=== PATIENT | male | born 1995 | race Caucasian/White ===

== ENCOUNTER 2016-09-23 19:37 | Emergency (ER) | payer MEDICAID, OTHER ==
[~2016-09-23] VITALS: Ht 167.6 cm; Wt 108.9 kg
[~2016-09-23 19:37] MED LIST: DONNATAL TAB1 TAB ORAL; IBUPROFEN600 MG ORAL; IMODIUM2 MG ORAL; ZOFRAN4 MG ORAL
[2016-09-23 19:58] VITALS: BP 130/73
[2016-09-23 20:19] LABS: BASOPHILS % (AUTO) 1.4 % (0.0-2.0); EOSINOPHILS % (AUTO) 0.1 % (0.0-3.0); LYMPHOCYTES % (AUTO) 19.4 % (20.0-45.0); MEAN CORPUSCULAR HEMOGLOBIN 27.7 PG (27.0-31.0); MEAN CORPUSCULAR HGB CONC 31.6 G/DL (32.0-36.0); MEAN CORPUSCULAR VOLUME 88 FL (80-99); MONOCYTES % (AUTO) 4.9 % (1.0-10.0); NEUTROPHILS % (AUTO) 74.2 % (45.0-75.0); PLATELET COUNT 250 K/UL (150-450); RED BLOOD COUNT 5.33 M/UL (4.70-6.10); RED CELL DISTRIBUTION WIDTH 12.5 % (11.6-14.8)
[2016-09-23 20:39] LABS: ALANINE AMINOTRANSFERASE 10 U/L (3-41); ALBUMIN/GLOBULIN RATIO 1.6 (1.0-2.7); ANION GAP 13 (5-15); ASPARTATE AMINO TRANSFERASE 24 U/L (5-40); CALCIUM 8.6 mg/dL (8.6-10.2); CARBON DIOXIDE 27 mEQ/L (20-30); CHLORIDE 101 mEQ/L (98-107); CREATININE 0.9 mg/dL (0.7-1.2); GLOMERULAR FILTRATION RATE > 60 mL/min (>60); HEMOLYSIS 7; POTASSIUM 3.8 mEQ/L (3.4-4.9); SODIUM 141 mEQ/L (135-145); TOTAL PROTEIN 6.2 g/dL (6.6-8.7)
[2016-09-23 20:40] LABS: TROPONIN I < 0.30 ng/mL (<=0.30)
[2016-09-23 20:50] LABS: CKMB < 1.5 ng/mL (< 6.7)
[2016-09-23 21:17] VITALS: BP 153/93
--- NOTE | 2016-09-23 22:09 | Emergency Room Report ---
History of Present Illness General Chief Complaint: Chest Pain Source: Patient Present Illness HPI 21-year-old male presents to ED for evaluation. Patient is in police custody. Patient states that shortly after being arrested he develop chest pain. Pain was midsternal, sharp, 7/10, nonradiating. No aggravating relieving factors. Denies shortness of breath. Denies smoking or drug use. Denies any other associated symptoms Allergies: Coded Allergies: No Known Allergies (Unverified , 03/03/15) Patient History Past Medical History: HTN Past Surgical History: none Pertinent Family History: none Social History: Denies: alcohol use, drug use, smoking Immunizations: UTD Reviewed Nursing Documentation: PMH: Agreed, PSxH: Agreed Nursing Documentation-PMH Hx Hypertension: Yes Hx Gastrointestinal Problems: Yes - unk diagnosis Review of Systems All Other Systems: negative except mentioned in HPI Physical Exam Vital Signs Date Time Temp Pulse Resp B/P Pulse Ox O2 Delivery O2 Flow Rate FiO2 09/23/16 19:35 97.3 80 16 153/88 99 Room Air Sp02 EP Interpretation: reviewed, normal General Appearance: no apparent distress, alert, GCS 15, non-toxic Head: normocephalic, atraumatic Eyes: bilateral eye PERRL, bilateral eye normal inspection ENT: hearing grossly normal, normal pharynx, no angioedema, normal voice Neck: full range of motion, supple/symm/no masses Respiratory: chest non-tender, lungs clear, normal breath sounds, speaking full sentences Cardiovascular #1: regular rate, rhythm, no edema Cardiovascular #2: 2+ carotid (R), 2+ carotid (L), 2+ radial (R), 2+ radial (L) , 2+ dorsalis pedis (R), 2+ dorsalis pedis (L) Gastrointestinal: normal bowel sounds, non tender, soft, non-distended, no guarding, no rebound Rectal: deferred Genitourinary: normal inspection, no CVA tenderness Musculoskeletal: back normal, gait/station normal, normal range of motion, non- tender Neurologic: alert, oriented x3, responsive, motor strength/tone normal, sensory intact, speech normal Psychiatric: judgement/insight normal, memory normal, mood/affect normal, no suicidal/homicidal ideation Reflexes: 3+ bicep (R), 3+ bicep (L), 3+ tricep (R), 3+ tricep (L), 3+ knee (R) , 3+ knee (L) Skin: normal color, no rash, warm/dry, well hydrated Lymphatic: no adenopathy Medical Decision Making Diagnostic Impression: Primary Impression: Chest pain Qualified Codes: R07.9 - Chest pain, unspecified Additional Impression: Medical clearance for incarceration ER Course Hospital Course 21-year-old M presents ED complaining of chest pain. In police custody Differential diagnoses include: Rib fracture, ME/unstable angina, contusion, muscle strain Clinical course Patient placed on stretcher. After initial history and physical I ordered labs , EKG, chest x-ray. labs reviewed- all electrolytes normal, troponins negative, no leukocytosis, hemoglobin/hematocrit stable Chest x-ray-no cardiomegaly, no rib fracture, no pneumothorax, no acute process per HEART score, patient is at low risk for acute event given lack of risk factors. Patient can be safely discharged to police custody I. I feel this is a highly complex case requiring extensive working including EKG/Rhythm strip, Xray/CT/US, Blood/urine lab work, repeat exams while in ED, and administration of strong opiates/narcotics for pain control, admission to hospital or close patient follow up. Diagnosis - chest pain , medical clearance for incarceration Stable and discharged to police custody. Instructed to followup with PMD. Return to ED if symptoms recur or worsen Labs Test 09/23/16 20:03 White Blood Count 10.0 K/UL (4.8-10.8) Red Blood Count 5.33 M/UL (4.70-6.10) Hemoglobin 14.8 G/DL (14.2-18.0) Hematocrit 46.6 % (42.0-52.0) Mean Corpuscular Volume 88 FL (80-99) Mean Corpuscular Hemoglobin 27.7 PG (27.0-31.0) Mean Corpuscular Hemoglobin Concent 31.6 G/DL (32.0-36.0) Red Cell Distribution Width 12.5 % (11.6-14.8) Platelet Count 250 K/UL (150-450) Mean Platelet Volume 5.0 FL (6.5-10.1) Neutrophils (%) (Auto) 74.2 % (45.0-75.0) Lymphocytes (%) (Auto) 19.4 % (20.0-45.0) Monocytes (%) (Auto) 4.9 % (1.0-10.0) Eosinophils (%) (Auto) 0.1 % (0.0-3.0) Basophils (%) (Auto) 1.4 % (0.0-2.0) Sodium Level 141 mEQ/L (135-145) Potassium Level 3.8 mEQ/L (3.4-4.9) Chloride Level 101 mEQ/L (98-107) Carbon Dioxide Level 27 mEQ/L (20-30) Anion Gap 13 (5-15) Blood Urea Nitrogen 11 mg/dL (7-23) Creatinine 0.9 mg/dL (0.7-1.2) Estimat Glomerular Filtration Rate > 60 mL/min (>60) Glucose Level 100 mg/dL (74-106) Calcium Level 8.6 mg/dL (8.6-10.2) Total Bilirubin < 0.2 mg/dL (0.0-1.2) Aspartate Amino Transf (AST/SGOT) 24 U/L (5-40) Alanine Aminotransferase (ALT/SGPT) 10 U/L (3-41) Alkaline Phosphatase 33 U/L (40-129) Total Creatine Kinase 307 U/L (38-174) Creatine Kinase MB < 1.5 ng/mL (< 6.7) Creatine Kinase MB Relative Index Troponin I < 0.30 ng/mL (<=0.30) Pro-B-Type Natriuretic Peptide 28 pg/mL (0-125) Total Protein 6.2 g/dL (6.6-8.7) Albumin 3.9 g/dL (3.5-5.2) Globulin 2.3 g/dL Albumin/Globulin Ratio 1.6 (1.0-2.7) EKG Diagnostic Results Rate: normal Rhythm: NSR ST Segments: no acute changes ASA given to the pt in ED: No Rhythm Strip Diag. Results EP Interpretation: yes Rhythm: NSR, no PVC's, no ectopy Chest X-Ray Diagnostic Results EP Interpretation: Yes Findings: no consolidation, no effusion, no pneumothorax, no acute cardiopulmonary disease Number of Views: 1 Last Vital Signs Date Time Temp Pulse Resp B/P Pulse Ox O2 Delivery O2 Flow Rate FiO2 09/23/16 21:17 103 17 153/93 99 Room Air 09/23/16 19:58 97.3 Status: improved Disposition: D/C TO LAW ENFORCEMENT IN CUST Condition: Stable Departure Forms: Group Home Clearance Patient Instructions: Nonspecific Chest Pain NEREIDA MARTINEZ M.D. Sep 23, 2016 22:09
--- NOTE | 2016-09-27 10:33 | Diagnostic Imaging Report ---
Indication: Chest pain Technique: Single portable AP view of the chest. Findings: Comparison: None. Projection limits evaluation. The bones and extra pulmonary soft tissues, cardiomediastinal silhouette, pulmonary vasculature and parenchyma, and pleural surfaces are unremarkable. IMPRESSION: Negative portable AP chest, limited as described. Upright PA and lateral chest radiographs with better inspiratory effort and optimal technique recommended for more complete evaluation..
--- NOTE | 2016-09-27 15:03 | Cardiology Report ---
APPROVED REPORT EKG Measurement Heart [id number] Sinus tachycardia Otherwise normal ECG
== END 2016-09-23 21:21 ==
LOC: EDBD 19:37 → EMR 20:00
DX: R07.89 Other chest pain (principal); I10 Essential (primary) hypertension
CPT/HCPCS: 36415; 71010; 80053; 82550; 82553; 83880; 84484; 85025; 93005; 99283

== ENCOUNTER 2018-02-08 05:43 | Emergency (ER) | payer MEDICAID, OTHER ==
[~2018-02-08] VITALS: Ht 167.6 cm; Wt 117.0 kg
[2018-02-08 05:50] VITALS: BP 119/51
[2018-02-08] MEDS ORDERED: HYDROCHLOROTHIA25 MG ORAL (05:56)
--- NOTE | 2018-02-08 05:56 | Emergency Room Report ---
History of Present Illness General Chief Complaint: Chest Pain Source: Patient Present Illness HPI This is a 22-year-old male with a history of high blood pressure but not on medication yet. He presents with chief complaint of chest pain is been ongoing for 48 hours. He said his baby pain going to the left chest. Sharp in nature. Pain is 5 out of 10. No fever chills but no nausea no vomiting. No radiation. Also wanted prescribed refill on Ambien. Allergies: Coded Allergies: No Known Allergies (Unverified , 03/03/15) Patient History Past Medical History: see triage record, old chart reviewed Past Surgical History: none Pertinent Family History: none Social History: Denies: smoking Immunizations: other Reviewed Nursing Documentation: PMH: Agreed; PSxH: Agreed Nursing Documentation-PMH Hx Hypertension: Yes Hx Asthma: Yes Hx Gastrointestinal Problems: Yes - unk diagnosis Review of Systems Eye: Denies: eye pain, blurred vision ENT: Denies: ear pain, nose congestion, throat swelling Respiratory: Denies: cough, shortness of breath Cardiovascular: Reports: chest pain; Denies: palpitations Gastrointestinal: Denies: abdominal pain, diarrhea, nausea, vomiting Musculoskeletal: Denies: back pain, joint pain Skin: Denies: rash Neurological: Denies: headache, numbness Endocrine: Denies: increased thirst, increased urine Hematologic/Lymphatic: Denies: easy bruising All Other Systems: negative except mentioned in HPI Physical Exam Vital Signs Date Time Temp Pulse Resp B/P (MAP) Pulse Ox O2 Delivery O2 Flow Rate FiO2 02/08/18 05:44 98.7 76 18 156/86 99 Room Air 98.8 vitals with high blood pressure Sp02 EP Interpretation: reviewed, normal General Appearance: well appearing, no apparent distress, alert, obese Head: normocephalic, atraumatic Eyes: bilateral eye PERRL, bilateral eye EOMI ENT: hearing grossly normal, normal pharynx Neck: full range of motion, supple, no meningismus Respiratory: chest non-tender, lungs clear, normal breath sounds Cardiovascular #1: regular rate, rhythm, no murmur Gastrointestinal: normal bowel sounds, non tender, no mass, no organomegaly, no bruit, non-distended Musculoskeletal: back normal, gait/station normal, normal range of motion Psychiatric: mood/affect normal Skin: warm/dry Medical Decision Making Diagnostic Impression: Primary Impression: Atypical chest pain Additional Impressions: Hypertension Qualified Codes: I10 - Essential (primary) hypertension Morbid obesity with BMI of 40.0-44.9, adult ER Course Patient with atypical chest pain. No evidence of ACS, PE, dissection. He's not hypoxic or tachypneic. Not tachycardic. We'll go ahead and put him on high blood pressure medication. He has follow-up in a week. I told him I would not refill controlled substance like Ambien. He can see his DrHoracio for it. EKG Diagnostic Results Rate: normal Rhythm: NSR ST Segments: no acute changes ASA given to the pt in ED: No Rhythm Strip Diag. Results Rhythm Strip Time: 05:55 EP Interpretation: yes Rate: 80 Rhythm: NSR, no PVC's, no ectopy Last Vital Signs Date Time Temp Pulse Resp B/P (MAP) Pulse Ox O2 Delivery O2 Flow Rate FiO2 02/08/18 05:44 98.7 76 18 156/86 99 Room Air 98.8 Status: improved Disposition: HOME, SELF-CARE Condition: Stable Scripts Hydrochlorothiazide* (HYDROCHLOROTHIAZIDE*) 25 Mg Tablet 25 MG ORAL DAILY, #30 TAB Prov: PHILOMENA MARCELO M.D. 02/08/18 Patient Instructions: Nonspecific Chest Pain Additional Instructions: Follow-up with your doctor in a week. Return if symptom worsen. PHILOMENA MARCELO M.D. February 08, 2018 05:56
[2018-02-08 06:10] VITALS: BP 120/58
--- NOTE | 2018-02-09 17:19 | Cardiology Report ---
APPROVED REPORT EKG Measurement Heart [id number] Normal sinus rhythm Normal ECG
== END 2018-02-08 06:10 | disposition home or self-care (01) ==
LOC: EDBD 05:43 → EDUNIT# 05:43 → EMR 05:58
DX: R07.89 Other chest pain (principal); I10 Essential (primary) hypertension; E66.01 Morbid (severe) obesity due to excess calories; Z68.41 Body mass index [BMI] 40.0-44.9, adult; J45.909 Unspecified asthma, uncomplicated
CPT/HCPCS: 93005; 99283

== ENCOUNTER 2019-01-30 02:53 | Emergency (ER) | payer MEDICAID ==
[~2019-01-30] VITALS: Ht 170.2 cm; Wt 108.9 kg
[~2019-01-30 02:53] MED LIST changes: +HYDROCHLOROTHIA25 MG ORAL
[2019-01-30 03:10] VITALS: BP 120/56
--- NOTE | 2019-01-30 03:10 | NUR ---
ED Nurse Note: Pt arrived ambulatory into ED for complaint of chest pain that occurred tonight after moving some boxes down the stairs. Pt has a hx of anxiety and htn. Pt states pain is a 7/10, feeling like pressure and crushing substernally. Pain is non-radiating. VSS. Pt showing no signs of acute distress.
--- NOTE | 2019-01-30 03:37 | Emergency Room Report ---
History of Present Illness General Chief Complaint: Chest Pain Source: Patient Present Illness HPI Patient was carrying a box downstairs. He misstepped and fell 7 or 8 steps and tumbled. He thinks he might have lost consciousness but remembers falling. He was laying there for 5 minutes with severe right ankle pain. He was also complaining about chest pain at that time. Denies any headache or neck pain at this time. There is swelling in his ankle also. He denies any numbness. There was no vomiting or hematuria. He has urinated since that time. Took no medication before coming in. Pain rated 7/10 in ankle, aching, non-radiating. Chest pain is much less. He denies hitting his chest when falling. The patient is had chest pain like this in the past. His doctors have considered treating him for medication for anxiety. No fevers, chills, palpitations, nausea, diarrhea, dysuria, abdominal pain, shortness of breath, depression, visual changes, headache. Allergies: Coded Allergies: No Known Allergies (Unverified , 03/03/15) Patient History Past Medical History: see triage record Social History: Denies: smoking, alcohol use, drug use Social History Narrative from home Reviewed Nursing Documentation: PMH: Agreed; PSxH: Agreed Nursing Documentation-PMH Hx Hypertension: Yes Hx Asthma: Yes Hx Gastrointestinal Problems: Yes - unk diagnosis Review of Systems All Other Systems: negative except mentioned in HPI Physical Exam Vital Signs Date Time Temp Pulse Resp B/P (MAP) Pulse Ox O2 Delivery O2 Flow Rate FiO2 01/30/19 03:07 98.8 87 20 98 Room Air Sp02 EP Interpretation: reviewed, normal General Appearance: no apparent distress, alert, GCS 15, obese Head: normocephalic Eyes: bilateral eye normal inspection, bilateral eye PERRL, bilateral eye EOMI ENT: moist mucus membranes Neck: supple Respiratory: lungs clear, normal breath sounds, other - Minimal chest wall tenderness Cardiovascular #1: regular rate, rhythm Cardiovascular #2: 2+ radial (R) Gastrointestinal: normal inspection, normal bowel sounds, non tender, no mass, non-distended, overweight Genitourinary: no CVA tenderness Musculoskeletal: back normal, normal range of motion, swelling, tender - Right ankle with lateral malleolus point tenderness no fifth metatarsal tenderness Neurologic: alert, oriented x3, motor strength/tone normal, DTRs symmetric, sensory intact - distal exam normal, cerebellar normal, normal gait, speech normal, grossly normal Psychiatric: anxious Skin: normal inspection, warm/dry Medical Decision Making Diagnostic Impression: Primary Impression: Ankle sprain Qualified Codes: S93.411A - Sprain of calcaneofibular ligament of right ankle , initial encounter Additional Impressions: Chest pain Qualified Codes: R07.9 - Chest pain, unspecified Fall Qualified Codes: W19.XXXA - Unspecified fall, initial encounter ER Course Patient presents post fall. Is complaining about chest pain and also ankle pain. EKG chest x-ray and right ankle films are indicated. Patient will receive a shot of Toradol. Based on his vital signs pulmonary embolus is excluded. EKG sinus rhythm with sinus arrhythmia normal EKG. CXR no abnormalities. Ankle no fx. Air splint applied by tech with good position. Neurovasc checked by me and normal. Improved with treatment. Patient stable for outpatient observation and treatment. EKG Diagnostic Results Rate: normal Rhythm: NSR ST Segments: no acute changes Rhythm Strip Diag. Results EP Interpretation: yes Rhythm: NSR, no PVC's, no ectopy Chest X-Ray Diagnostic Results Chest X-Ray Diagnostic Results : Chest X-Ray Ordered: Yes # of Views/Limited/Complete: 1 View Indication: Chest Pain EP Interpretation: Yes Interpretation: no consolidation, no effusion, no pneumothorax Impression: No acute disease Electronically Signed by: Electronically signed by Tristan Tolliver MD Other X-Ray Diagnostic Results Other X-Ray Diagnostic Results : X-Ray ordered: R ankle # of Views/Limited Vs Complete: 3 View Indication: Other EP Interpretation: Yes Interpretation: no dislocation, no fractures, other - STS Impression: Other Electronically Signed by: Electronically signed by Tristan Tolliver MD Last Vital Signs Date Time Temp Pulse Resp B/P (MAP) Pulse Ox O2 Delivery O2 Flow Rate FiO2 01/30/19 06:18 98.0 78 23 132/56 100 Room Air Status: improved Disposition: HOME, SELF-CARE Condition: Improved Scripts Tramadol Hcl* (ULTRAM*) 50 Mg Tablet 50 MG ORAL Q6H PRN for For Pain, #6 TAB 0 Refills Prov: Tristan Tolliver MD 01/30/19 Acetaminophen (Tylenol) 325 Mg Tablet 650 MG ORAL Q6H PRN for Prn Pain/Headache/Temp > 101, #20 TAB 0 Refills Prov: Tristan Tolliver MD 01/30/19 Ibuprofen* (MOTRIN*) 600 Mg Tablet 600 MG ORAL Q6H PRN for For Pain, #16 TAB Prov: Tristan Tolliver MD 01/30/19 Referrals: NON PHYSICIAN (PCP) Tristan Tolliver MD January 30, 2019 03:37
[2019-01-30] MEDS ORDERED: Ketorolac 30mg Inj IM ONE (03:45)
[2019-01-30] MEDS ORDERED: TRAMADOL HCL50 MG ORAL ×2 (05:48→05:49)
[2019-01-30] MEDS ORDERED: IBUPROFEN600 MG ORAL (05:48)
[2019-01-30] MEDS ORDERED: TYLENOL325 MG ORAL (05:48)
[2019-01-30 06:18] VITALS: BP 132/56
--- NOTE | 2019-01-30 06:18 | NUR ---
ED Nurse Note: Pt cleared by . Pt A/Ox4, showing no signs of acute distress, VSS. Discharge paperwork and prescriptions provide. Pt verbalized understanding of all instructions. Pt provided with taxi voucher and is able to ambulate steadily with crutches. All belongings taken with patient. ID band removed.
--- NOTE | 2019-01-30 11:41 | Diagnostic Imaging Report ---
Indication: Dyspnea Comparison: 09/23/2016 A single view chest radiograph was obtained. Findings: Cardiomediastinal appearance is within normal limits for age. The lungs are clear. Pulmonary vascularity is appropriate. The diaphragmatic contour is smooth and costophrenic angles are sharp. No pleural effusions are identified. The bones are unremarkable. Impression: No acute findings
--- NOTE | 2019-01-30 11:42 | Diagnostic Imaging Report ---
Indication: Pain right ankle ankle pain/trauma Comparison: None Findings: 3 views of the right ankle obtained. No acute fracture, malalignment, periostitis, or osteochondral defects are identified. Soft tissue swelling noted. IMPRESSION: Soft tissue swelling nonspecific in nature
== END 2019-01-30 06:18 | disposition home or self-care (01) ==
LOC: EMR 03:30
DX: S93.401A Sprain of unspecified ligament of right ankle, initial encounter (principal); R07.9 Chest pain, unspecified; W10.9XXA Fall (on) (from) unspecified stairs and steps, initial encounter; Y92.9 Unspecified place or not applicable; I10 Essential (primary) hypertension
CPT/HCPCS: 71045; 73610; 96372; 99284; J1885

== ENCOUNTER 2019-02-08 17:28 | Emergency (ER) | payer MEDICAID ==
[~2019-02-08] VITALS: Ht 177.8 cm; Wt 104.3 kg
[~2019-02-08 17:28] MED LIST changes: +TRAMADOL HCL50 MG ORAL; +TYLENOL325 MG ORAL
[2019-02-08] MEDS ORDERED: NKM (17:33)
--- NOTE | 2019-02-08 18:08 | Emergency Room Report ---
History of Present Illness General Chief Complaint: Earache Source: Patient Present Illness HPI 23-year-old male presents to the emergency department complaining of 10 out of 10 in severity pain, tenderness, swelling and erythema to the right earlobe progressive 2-3 days. She states that he has had a chronic keloid scar for the past year in that area he states however his infant son keeps tugging on that year which is been aggravating it. Patient reports he has a new onset of a small open wound that had some mild crusting to it this a.m. Denies fevers or chills he denies swollen tender lymph nodes he denies changes to his hearing , discharge from the ear or ear trauma other than being pulled on by his child. He has not been taking any anti-inflammatories or any medications for his symptoms. Allergies: Coded Allergies: No Known Allergies (Unverified , 03/03/15) Patient History Past Medical History: see triage record Past Surgical History: none Pertinent Family History: none Reviewed Nursing Documentation: PMH: Agreed; PSxH: Agreed Nursing Documentation-PMH Hx Hypertension: Yes Hx Asthma: Yes Hx Gastrointestinal Problems: Yes - unk diagnosis Review of Systems All Other Systems: negative except mentioned in HPI Physical Exam Vital Signs Date Time Temp Pulse Resp B/P (MAP) Pulse Ox O2 Delivery O2 Flow Rate FiO2 02/08/19 17:31 97.5 80 18 117/72 (87) 96 Room Air Sp02 EP Interpretation: reviewed, normal General Appearance: no apparent distress, alert, GCS 15, non-toxic Head: normocephalic, atraumatic Eyes: bilateral eye normal inspection, bilateral eye PERRL ENT: hearing grossly normal, normal voice, other - pain, tenderness, swelling and erythema to the right earlobe-- Keloid scar that is 2cm in diameter with warmth, and small 0.2cm open laceration that is crusted and scabbed. no Preauricular LAD. Neck: full range of motion Respiratory: chest non-tender, lungs clear, normal breath sounds, speaking full sentences Cardiovascular #1: regular rate, rhythm, no edema Musculoskeletal: back normal, gait/station normal, normal range of motion, non- tender Neurologic: alert, oriented x3, responsive, motor strength/tone normal, sensory intact, speech normal, grossly normal Psychiatric: judgement/insight normal Skin: normal color, no rash, warm/dry, well hydrated, other - pain, tenderness , swelling and erythema to the right earlobe-- Keloid scar that is 2cm in diameter with warmth, and small 0.2cm open laceration that is crusted and scabbed Lymphatic: no adenopathy Medical Decision Making PA Attestation Dr. Tolliver is my supervising Physician whom patient management has been discussed with. Diagnostic Impression: Primary Impression: Cellulitis Qualified Codes: L03.90 - Cellulitis, unspecified ER Course 23-year-old male presents to the emergency department complaining of 10 out of 10 in severity pain, tenderness, swelling and erythema to the right earlobe progressive 2-3 days. She states that he has had a chronic keloid scar for the past year in that area he states however his son keeps tugging on that year which is been aggravating it. Patient reports he has a new onset of a small open wound that had some mild crusting to it this a.m. Denies fevers or chills he denies swollen tender lymph nodes he denies changes to his hearing , discharge from the ear or ear trauma other than being pulled on by his child. He has not been taking any anti-inflammatories or any medications for his symptoms. Ddx considered but are not limited to cellulitis, abscess, ST FB, otitis externa just to name a few. Vital signs: are WNL, pt. is afebrile H&PE are most consistent with cellulitis of keloid scar of the right ear lobe. ORDERS: none required at this time, the diagnosis is clinical ED INTERVENTIONS: None required at this time. DISCHARGE: At this time pt. is stable for d/c to home. Will provide printed patient care instructions, and any necessary prescriptions. Care plan and follow up instructions have been discussed with the patient prior to discharge. Last Vital Signs Date Time Temp Pulse Resp B/P (MAP) Pulse Ox O2 Delivery O2 Flow Rate FiO2 02/08/19 17:31 97.5 80 18 117/72 (87) 96 Room Air Disposition: HOME, SELF-CARE Condition: Stable Scripts Mupirocin* (MUPIROCIN*) 22 Gm Oint...g. 1 APPLIC TOPIC THREE TIMES A DAY, #22 GM Prov: Thalia Negrete 02/08/19 Ibuprofen* (MOTRIN*) 600 Mg Tablet 600 MG ORAL THREE TIMES A DAY, #30 TAB 0 Refills Prov: Thalia Negrete 02/08/19 Sulfamethoxazole/Trimethoprim Ds Tablet* (SULFAMETHOXAZOLE-TMP DS TABLET*) 1 Each Tablet 1 TAB ORAL TWICE A DAY for 7 Days, #14 TAB Prov: Thalia Negrete 02/08/19 Cephalexin* (KEFLEX*) 500 Mg Capsule 500 MG ORAL EVERY 12 HOURS for 7 Days, #14 CAP 0 Refills Prov: Thalia Negrete 02/08/19 Patient Instructions: Cellulitis, [id number] Additional Instructions: Take medications as directed. Follow up with a Primary Care Provider in 3-5 days, even if your symptoms have resolved. --Please review recommended Plastic Surgeon info on the next page, if you do not already have a primary care provider Return sooner to ED if new symptoms occur, or current symptoms become worse. - Please note that this Emergency Department Report was dictated using [employer] scientist technology software, occasionally this can lead to erroneous entry secondary to interpretation by the dictation equipment. Thalia Negrete February 08, 2019 18:08
[2019-02-08] MEDS ORDERED: CEPHALEXIN500 MG ORAL (18:10)
[2019-02-08] MEDS ORDERED: IBUPROFEN600 MG ORAL (18:10)
[2019-02-08] MEDS ORDERED: MUPIROCIN22 GM TOPIC (18:10)
[2019-02-08] MEDS ORDERED: SULFAMETHOXAZO1 EAC2 ORAL (18:10)
[2019-02-08 18:19] VITALS: BP 117/72
--- NOTE | 2019-02-08 18:22 | NUR ---
ER DISCHARGE NOTE: Patient is cleared to be discharged per ERMD, pt is aox4, on room air, with stable vital signs. pt was given dc and prescription instructions, pt was able to verbalize understanding, pt is able to ambulate with steady gait. pt took all belongings.
[2019-02-08 18:23] VITALS: BP 117/72
== END 2019-02-08 18:20 | disposition home or self-care (01) ==
LOC: EMR 18:20
DX: L03.90 Cellulitis, unspecified (principal); I10 Essential (primary) hypertension
CPT/HCPCS: 99282

== ENCOUNTER 2019-02-09 21:43 | Emergency (ER) | payer MEDICAID ==
[~2019-02-09] VITALS: Ht 167.6 cm; Wt 113.4 kg
[~2019-02-09 21:43] MED LIST changes: +CEPHALEXIN500 MG ORAL; +MUPIROCIN22 GM TOPIC; +NKM; +SULFAMETHOXAZO1 EAC2 ORAL
[2019-02-09 22:25] VITALS: BP 135/85
--- NOTE | 2019-02-10 02:00 | Emergency Room Report ---
History of Present Illness General Chief Complaint: Lower Extremity Injury Source: Patient Present Illness HPI Patient present with complaints of right ankle discomfort Reports that he injured it about 10 days ago after falling while moving his furniture Denies any knee pain denies any pelvic pain denies any chest pain or shortness of breath Patient had not mentioned this however on review of medical records patient appears to have been here about that time with x-ray imaging which was negative Discussing that with the patient he does report that he does recall being here now Patient was allowed to rest Denies any other complaints Allergies: Coded Allergies: No Known Allergies (Unverified , 03/03/15) Patient History Past Medical History: see triage record Pertinent Family History: none Reviewed Nursing Documentation: PMH: Agreed; PSxH: Agreed Nursing Documentation-PMH Past Medical History: No History, Except For Hx Hypertension: Yes Hx Asthma: Yes Hx Gastrointestinal Problems: Yes - unk diagnosis Review of Systems All Other Systems: negative except mentioned in HPI Physical Exam Vital Signs Date Time Temp Pulse Resp B/P (MAP) Pulse Ox O2 Delivery O2 Flow Rate FiO2 02/09/19 21:44 99.1 85 18 135/85 (102) 98 Room Air Sp02 EP Interpretation: reviewed, normal General Appearance: well appearing, no apparent distress Head: normocephalic, atraumatic Eyes: bilateral eye PERRL, bilateral eye EOMI ENT: other - Keloid right earlobe Neck: supple Respiratory: lungs clear, no respiratory distress, no retraction Cardiovascular #1: regular rate, rhythm Gastrointestinal: non tender, soft Musculoskeletal: other - Some discomfort on palpation of the bilateral malleolus or area no obvious swelling at this time compared to the left side neurovascularly intact patient bearing weight Neurologic: alert, oriented x3, responsive Skin: normal color, no rash Lymphatic: no adenopathy Medical Decision Making Diagnostic Impression: Primary Impression: ankle sprain ER Course I discuss with the patient that his imaging did not show any obvious acute fracture Patient has been ambulatory for the past 10 days Patient was allowed to rest and requested to go home after observation Last Vital Signs Date Time Temp Pulse Resp B/P (MAP) Pulse Ox O2 Delivery O2 Flow Rate FiO2 02/09/19 22:25 99.1 84 18 135/85 98 Room Air Status: improved Disposition: HOME, SELF-CARE Condition: Stable Referrals: [facility],REFERRING (PCP) [facility] + [facility] ER - Peds ER - [facility] Patient Instructions: Ankle Sprain Additional Instructions: Patient is provided with the discharge instructions notified to follow up with primary doctor in the next 2-3 days otherwise return to the er with any worsening symptoms. Please note that this report is being documented using DRAGON technology. This can lead to erroneous entry secondary to incorrect interpretation by the dictating instrument. Gael Leblanc DO February 10, 2019 02:00
== END 2019-02-09 22:25 | disposition home or self-care (01) ==
LOC: EDBD 21:43 → EMR 21:56
DX: S93.401A Sprain of unspecified ligament of right ankle, initial encounter (principal); W19.XXXA Unspecified fall, initial encounter; Y92.9 Unspecified place or not applicable; I10 Essential (primary) hypertension; J45.909 Unspecified asthma, uncomplicated
CPT/HCPCS: 99281